=== PATIENT | male | born 1965 | race Asian ===

== ENCOUNTER 2023-09-05 06:24 | Day surgery (SDC) | payer OTHER, SELFPAY ==
[2023-09-05] VITALS (10 sets, daily range): BP systolic 130–157; BP diastolic 87–102; BMI 21.8
[2023-09-05] MEDS: NORMOSOL-R 1000 IV (08:06)
[2023-09-05 08:19] LABS: Hematocrit 43.1 % (39.0-52.0); Hemoglobin 14.9 g/dL (13.0-18.0); Mean Corp Hgb Conc. 34.6 g/dL (33.0-37.0); Mean Corpuscular Hgb 30.7 pg (27.0-31.0); Mean Corpuscular Volume 88.7 fL (80.0-94.0); Mean Platelet Volume 9.1 fL (7.4-10.4); Platelet Count 301 10^3/uL (130-400); Red Blood Cell Count 4.86 10^6/uL (4.70-6.10); Red Cell Dist. Width 11.6 % (11.5-14.5); White Blood Cell Count 4.6 10^3/uL (4.8-10.8)
[2023-09-05 08:29] LABS: APTT 27.3 Sec (23.4-35.0)
[2023-09-05 08:46] LABS: ALT (SGPT) 23 U/L (0-50); AST (SGOT) 61 U/L (17-59); Albumin 4.3 g/dl (3.5-5.0); Alkaline Phosphatase 57 U/L (38-126); Blood Urea Nitrogen 21 mg/dl (9-20); Calcium 9.8 mg/dl (8.4-10.2); Carbon Dioxide 33 mmol/L (22-30); Chloride 99 mmol/L (98-107); Estimated Creatinine Clearance 76 ml/min; Glucose 161 mg/dl (70-99); Potassium 4.7 mmol/L (3.5-5.1); Sodium 138 mmol/L (135-145); Total Bilirubin 0.6 mg/dl (0.2-1.3); Total Protein 6.9 g/dl (6.3-8.2); eGFR > 60.00
[2023-09-05 09:58] LABS: Glucose - Point of Care 120 mg/dl (70-99)
[2023-09-05] MEDS: FLOMAX 0.400000000000000022 MG PO (10:52)
== END 2023-09-05 12:10 | disposition home or self-care (01) ==
LOC: SDS 06:24
PROVIDERS: ATTENDING PHYSICIAN Specialist
DX: N47.8 Other disorders of prepuce (principal); N47.1 Phimosis; N35.911 Unspecified urethral stricture, male, meatal; R39.12 Poor urinary stream
CPT/HCPCS: 54161; 88304; 80053; 82962; 85027; 85730; 93005